=== PATIENT | female | born 1995 | race Caucasian/White ===

== ENCOUNTER 2020-06-27 22:36 | Emergency (ER) | payer OTHER ==
[~2020-06-27] VITALS: Ht 172.7 cm; Wt 99.3 kg
[2020-06-27] MEDS ORDERED: ADDERALL 20 MG20 MG PO (22:45)
[2020-06-27] MEDS ORDERED: BUSPIRONE HCL10 MG PO (22:45)
[2020-06-28] LABS: INFLUENZA A ANTIGEN Negative (Negative); INFLUENZA B ANTIGEN Negative (Negative)
[2020-06-28] MEDS ORDERED: AUGMENTIN 875-1 EACH PO (00:19)
[2020-06-28 00:37] VITALS: BP 126/82
== END 2020-06-28 00:37 | disposition home or self-care (01) ==
LOC: M.ERS 22:36
PROVIDERS: Emergency Medicine Emergency Medical Services
DX: J32.9 Chronic sinusitis, unspecified (principal); Z20.828 Contact with and (suspected) exposure to other viral communicable diseases; F17.210 Nicotine dependence, cigarettes, uncomplicated

== ENCOUNTER 2020-09-13 19:56 | Emergency (ER) | payer OTHER ==
[~2020-09-13] VITALS: Ht 172.7 cm; Wt 90.7 kg
[~2020-09-13 19:56] MED LIST: ADDERALL 20 MG20 MG PO; AUGMENTIN 875-1 EACH PO; BUSPIRONE HCL10 MG PO
[2020-09-13] MEDS ORDERED: TRAMADOL 50 MG50 MG PO (20:05)
[2020-09-13 20:31] LABS: URINE BILIRUBIN NEGATIVE (Negative); URINE BLOOD 3+ (Negative); URINE CLARITY SL CLOUDY; URINE COLOR YELLOW; URINE GLUCOSE-RANDOM NEGATIVE (Negative); URINE KETONES NEGATIVE (Negative); URINE LEUKOCYTES NEGATIVE (Negative); URINE NITRITE NEGATIVE (Negative); URINE PROTEIN TRACE (Negative); URINE SPECIFIC GRAVITY >= 1.030 (1.005-1.030); URINE UROBILINOGEN 0.2 E.U./dl (0.2-1.0)
[2020-09-13 20:38] LABS: HEMATOCRIT 39.9 % (37.0-47.0); HEMOGLOBIN 13.7 gm/dL (12.0-15.0); MCHC 34.4 g/dL (28.0-37.0); MCV 90.1 fL (80.0-100.0); MPV 6.9 fl. (7.2-11.1); RBC 4.43 mil/uL (4.20-5.00); RDW-CV 13.3 % (10.5-14.5); WBC 9.3 thou/uL (4.0-11.0)
[2020-09-13 20:50] LABS: AMP/METHAMP POSITIVE (Negative); BARBITURATES Negative (Negative); BENZODIAZEPINES POSITIVE (Negative); COCAINE Negative (Negative); METHADONE Negative (Negative); OPIATES Negative (Negative); PCP Negative (Negative); THC Negative (Negative)
[2020-09-13 20:52] LABS: CALCIUM 8.8 mg/dL (8.5-10.1); POTASSIUM 3.6 mmol/L (3.5-5.1)
[2020-09-13 20:53] LABS: SALICYLATE < 2.8 mg/dL (2.8-20.0)
[2020-09-13 20:54] LABS: ACETAMINOPHEN < 2 ug/mL (10-30); ALCOHOL < 10 mg/dL (<10)
[2020-09-13 20:55] LABS: TOTAL BILIRUBIN 0.5 mg/dL (<0.1-1.0); TOTAL PROTEIN 7.7 g/dL (6.4-8.2)
[2020-09-13 21:04] LABS: CASTS None Seen /LPF (None Seen); SQUAMOUS >10 Many /LPF (0-3)
[2020-09-13 21:05] LABS: URINE RBC >20 Many /HPF (0-2); URINE WBC 0-5 Rare /HPF (0-5)
[2020-09-13 21:06] LABS: CRYSTALS None Seen /LPF (None Seen)
[2020-09-13 22:37] VITALS: BP 122/68
--- NOTE | 2020-09-14 09:53 | EKG ---
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
== END 2020-09-13 22:38 | disposition home or self-care (01) ==
LOC: M.ERS 19:56
PROVIDERS: Personal Emergency Response Attendant
DX: R56.9 Unspecified convulsions (principal); R41.0 Disorientation, unspecified; R11.0 Nausea; Z79.899 Other long term (current) drug therapy; Z88.6 Allergy status to analgesic agent; Z88.8 Allergy status to other drugs, medicaments and biological substances; F17.210 Nicotine dependence, cigarettes, uncomplicated